=== PATIENT | female | born 1975 | race Caucasian/White ===

== ENCOUNTER 2017-02-18 14:37 | Emergency (ER) | payer MEDICAID ==
--- NOTE | 2017-02-18 15:38 | ED Physician Chart ---
ED Chief Complaint/HPI - Patient Information Date Seen:: 02/18/17 Time Seen:: 15:04 Chief Complaint:: Dyuria for 1 day. History of Present Illness:: Pt is primarily [place]o speaking, though she is able to communicate in Upper Sorbian. Interpretation is provided by Aneta [employer] to ensure complete understanding. Pt c/o dysuria for one day with urgency and frequency with urination. No fever. No N/V/D. No vaginal bleeding or discharge. No lightheadedness. Allergies:: Allergies Allergy/AdvReac Type Severity Reaction Status Date / Time MDX No Known Allergies - Nka Allergy Verified 05/30/12 23:59 [No Known Allergies - Nka] Vitals:: Vital Signs - 8 hr 02/18/17 15:11 Temp 98.4 F HR 85 RR 18 BP 129/88 O2 Sat % 100 Historian:: Patient Family MD/PCP:: Dr. Walter Feliciano LMP:: 02/14/17. Review:: Nurse's Note Reviewed ED Review of Systems - Review of Systems General/Constitutional: No fever, No chills, No weight loss, No weakness, No edema, No loss of appetite Skin: No skin lesions, No rash, No bruising Head: No headache, No light-headedness Eyes: No loss of vision, No pain, No diplopia ENT: No earache, No nasal drainage, No sore throat Cardio Vascular: No chest pain, No palpitations, No edema Pulmonary: No SOB, No cough, No wheezing GI: No nausea, No vomiting G/U: Dysuria, Frequency, Hematuria (?) Musculoskeletal: No bone or joint pain, No back pain, No muscle pain Endocrine: Polyuria, No polydipsia Psychiatric: No prior psych history Hematopoietic: No bruising, No lymphadenopathy Allergic/Immuno: No urticaria, No angioedema Neurological: No syncope, No focal symptoms, No weakness, No paresthesia, No headache, No dizziness, No confusion, No vertigo ED Past Medical History - Past Medical History Past Medical History: PUD/GERD Family History: Heart disease (father), Diabetes Melitus (father) Social History: Non Smoker, No Alcohol, No Drug Use, , Other (lives with her .) Surgical History: None Psychiatricy History: None Medication: Reviewed ED Physical Exam - Physical Examination General/Constitutional: Awake, Well-developed, well-nourished, Alert, No distress, GCS 15, Non-toxic appearing, Ambulatory Other Gen/Cons comments:: Breathes comfortably, speaks clearly, interacts normally, and ambulates without difficulty. Head: Atraumatic Eyes: Lids, conjuctiva normal, PERRL, EOMI Skin: Nl inspection, No rash, No skin lesions, No ecchymosis, Well hydrated, No lymphadenopathy ENMT: External ears, nose nl, Nasal exam nl, Lips, teeth, gums nl, Oropharynx nl Neck: Nontender, Full ROM w/o pain, No JVD, No nuchal rigidity, No mass, No stridor Respiratory: Nl effort/Exclusion, Clear to Auscultation, No Wheeze/Rhonchi/Rales Cardio Vascular: RRR, No murmur, gallop, rubs GI: No tenderness/rebounding/guarding, No organomegaly, Normal BS's, Nondistended, No McBurney tenderness Other GI comments:: Obese but soft. : No CVA tenderness Extremities: No tenderness or effusion, Full ROM, normal strength in all extremities, No edema, Normal digits & nails Neuro/Psych: Alert/oriented (oriented x 3.), Normal motor strength, Judgement/ insight normal, Mood normal, Normal gait, No focal deficits ED Labs/Radiology/EKG Results - Lab Results Results: Laboratory Tests 02/18/17 15:15 Urine Source [place] Urine Color RED Urine Clarity HAZY Urine pH 7.5 Ur Specific [place] 1.010 Urine Protein 30 H Urine Glucose (UA) NEGATIVE Urine Ketones NEGATIVE Urine Blood LARGE H Urine Nitrate NEGATIVE Urine Bilirubin NEGATIVE Urine Urobilinogen 0.2 Ur Leukocyte Esterase SMALL H Urine RBC >100 H Urine WBC 6-10 H Ur Epithelial Cells OCCASIONAL Urine Bacteria FEW Urine specimen is contaminated with menstrual blood as she is at the end of her menstrual period. ED Septic Shock - . Is Septic Shock (SBP<90, OR Lactate>4 mmol\L) present?: No - <6hrs of presentation: Vital Signs: Vital Signs - 8 hr 02/18/17 15:11 Temp 98.4 F HR 85 RR 18 BP 129/88 O2 Sat % 100 ED Reassessment (Disposition) - Reassessment Reassessment:: 1650 Pt remains stable. Lab results just became available. Lab findings have been reviewed with pt. Pt requests to go home now and does not want further observation/management in hospital. Aftercare instructions have been given. Reassessment Condition:: Improved - Diagnosis Diagnosis:: Early urinary tract infection, stable. - Aftercare/Follow up Instructions Aftercare/Follow-Up Instructions:: Refer to Discharge Instructions Notes:: Push oral fluid. F/U with PCP Dr. Walter Feliciano in one day for recheck. Return to ER immediately if condition worsens or if any further questions/problems. Medication Prescribed:: Bactrim DS one tab po q12h for 7 days. D-14 R-0 Pyridium 200 mg tab one tab po q8h prn dysuria. D-6 R-0 - Patient Disposition Discharge/Transfer:: Home Time:: 16:55 Condition at Disposition:: Stable, Improved
[2017-02-18 15:52] LABS: URINE BILIRUBIN NEGATIVE (NEGATIVE); URINE BLOOD LARGE (NEGATIVE); URINE GLUCOSE (UA) NEGATIVE (NEGATIVE); URINE KETONE NEGATIVE (NEGATIVE); URINE PH 7.5 (4.6 - 8.0); URINE PROTEIN 30 mg/dL (NEGATIVE); URINE UROBILINOGEN 0.2 E.U./dL (0.2 - 1.0)
[2017-02-18 16:00] LABS: URINE COLOR RED; URINE EPITHELIAL CELLS OCCASIONAL /lpf (FEW); URINE RBC >100 /hpf (0-5)
[2017-02-18 16:01] LABS: URINE BACTERIA FEW /hpf (NONE SEEN)
== END 2017-02-18 17:10 | disposition home or self-care (01) ==
LOC: ER 14:37
DX: N39.0 Urinary tract infection, site not specified (principal); K21.9 Gastro-esophageal reflux disease without esophagitis
CPT/HCPCS: 81001-TC; Z7502